=== PATIENT | female | born 1955 | race American Indian/Alaskan Native ===

== ENCOUNTER 2020-12-18 14:44 | Outpatient (CLI) | payer MEDICARE | END 2020-12-18 14:45 | disposition home or self-care (01) | LOC: CSHMRI 14:44 | PROVIDERS: ATTEND Family Medicine | DX: M50.30 Other cervical disc degeneration, unspecified cervical region (principal); M54.12 Radiculopathy, cervical region; M47.812 Spondylosis without myelopathy or radiculopathy, cervical region; Z98.1 Arthrodesis status; Z98.890 Other specified postprocedural states; G95.89 Other specified diseases of spinal cord; M48.02 Spinal stenosis, cervical region | CPT/HCPCS: 72141 ==

== ENCOUNTER 2021-03-03 08:57 | Outpatient (CLI) | payer MEDICARE, OTHER | END 2021-03-03 08:58 | disposition home or self-care (01) | LOC: CSHMAMMO 08:57 | PROVIDERS: ATTEND Family Medicine | DX: Z12.31 Encounter for screening mammogram for malignant neoplasm of breast (principal); Z80.3 Family history of malignant neoplasm of breast | CPT/HCPCS: 77063; 77067 ==

== ENCOUNTER 2022-09-29 09:40 | Outpatient (CLI) | payer MEDICARE, OTHER | END 2022-09-29 09:41 | disposition home or self-care (01) | LOC: CSHMAMMO 09:40 | PROVIDERS: ATTEND Family Medicine | DX: Z12.31 Encounter for screening mammogram for malignant neoplasm of breast (principal); Z80.3 Family history of malignant neoplasm of breast | CPT/HCPCS: 77063; 77067 ==

== ENCOUNTER 2023-01-11 10:32 | Outpatient (CLI) | payer MEDICARE | END 2023-01-11 10:33 | disposition home or self-care (01) | LOC: CSHMAMMO 10:32 | PROVIDERS: ATTEND Family Medicine | DX: Z13.820 Encounter for screening for osteoporosis (principal); Z78.0 Asymptomatic menopausal state | CPT/HCPCS: 77080 ==

== ENCOUNTER 2024-11-06 10:27 | Outpatient (CLI) | payer MEDICARE | END 2024-11-06 10:28 | disposition home or self-care (01) | LOC: CSHMAMMO 10:27 | PROVIDERS: ATTEND Student in an Organized Health Care Education/Training Program | DX: Z12.31 Encounter for screening mammogram for malignant neoplasm of breast (principal); Z80.3 Family history of malignant neoplasm of breast | CPT/HCPCS: 77063; 77067 ==